=== PATIENT | female | born 1980 | race Hispanic/Latino ===

== ENCOUNTER 2019-08-25 17:45 | Emergency (ER) | payer BC ==
[~2019-08-25] VITALS: Ht 149.9 cm; Wt 77.1 kg
--- OUTSIDE RECORDS SUMMARY | 2019-08-25 17:47 | XMS REPORT | Summary of Care ---
Author Author Cristiane Fraser M.A. Organization Unknown Address [facility] Phone Unavailable Care Team Providers Care Pricing Intern Name Role Phone ELVIS BEAUCHAMP Unavailable Unavailable Cristiane Fraser M.A. 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 Quantity: 90 Active Fluconazole 150 MG Oral Tablet TAKE 1 TABLET ONCE AND REPEAT IN 1 WEEK. * Quantity: 1 Refills: 1 NILDA Ro.Seng, ELVIS * Start : 09-Dec-2017 Active Allergies and Adverse Reactions Name Dates Details No Known Allergies (Allergy) Status: Active Procedures Procedure Dates Details MA Digital Mammo Screening Harley [id number] Date: 03-Dec-2017 History of hysterectomy Completed History of tubal ligation Completed History of hernia repair Completed History of wrist surgery Completed History of cholecystectomy Completed History of kidney donation procedure Completed Immunization Name Dates Details Immunizations not documented Family History Name Dates Details Family history of cerebrovascular accident (CVA) (V17.1, Z82.3) Status: Active Family history of asthma (V17.5, Z82.5) Status: Active Family history of malignant neoplasm of uterus (V16.49, Z80.49) Status: Active Name Dates Details Family history of diabetes mellitus (V18.0, Z83.3) Status: Active Social History Name Dates Details - Status: Name Dates Details Never smoker Vital Signs Date Test Result Details [id number] BP Systolic 124 mm[Hg] Status: Comments: Location: LUE; Position: Sitting BP Diastolic 86 mm[Hg] Status: Comments: Location: LUE; Position: Sitting Height 59 in Status: Weight 164 lb Status: Body Mass Index Calculated 33.12 kg/m2 Status: Body Surface Area Calculated 1.69 m2 Status: Temperature 97.8 f Status: Comments: Method: Temporal Heart Rate 89 /min Status: Respiration Rate 16 /min Status: Results Date Description Value Details [id number] [O] Urine Dipstick (In Office) LEUKOCYTES neg (Normal) NITRITE neg (Normal) UROBILINOGEN neg (Normal) PROTEIN 30 pH 5 URINE BLOOD trace SPECIFIC GRAVITY 1.015 KETONES small BILIRUBIN neg (Normal) GLUCOSE norml (Normal) COLOR URINE elias APPEARANCE clear (Normal) [id number] [[facility]] CBC (INCLUDES DIFF/PLT) WBC 9.3 {K/CMM} Range: 3.7-10.4 RBC 5.38 {M/CMM} Range: 4.20-5.40 Hgb 14.6 g/dl Range: 12.0-16.0 Hct 43.6 % Range: 36.0-48.0 MCV 81.1 fL Range: 80.0-98.0 MCH 27.1 pg Range: 27.0-31.0 MCHC 33.4 g/dl Range: 32.0-36.0 RDW 13.7 % Range: 11.5-14.5 Platelet 224 {K/CMM} Range: 133-450 Mean Platelet Volume 9.3 fL Range: 7.4-10.4 [id number] [[facility]] Differential Segmented Neutrophils 64.8 % Range: 45.0-75.0 Monocytes 4.8 % Range: 2.0-12.0 Lymphocytes 28.8 % Range: 20.0-40.0 Eosinophils 1.0 % Range: 0.0-4.0 Basophils 0.6 % Range: 0.0-1.0 Segs-Bands # 6.0 {K/CMM} Range: 1.5-8.1 Lymphocytes # 2.7 {K/CMM} Range: 1.0-5.5 Monocytes # 0.4 {K/CMM} Range: 0.0-0.8 Eosinophils # 0.1 {K/CMM} Range: 0.0-0.5 Basophils # 0.1 {K/CMM} Range: 0.0-0.2 [id number] [[facility]] CMP W/EGFR Sodium Level 141 {mEq/l} Range: 135-145 Potassium Level 4.2 {mEq/l} Range: 3.5-5.1 Chloride Level 109 {mEq/l} Range: 95-109 Carbon Dioxide 27 {mEq/l} Range: 24-32 AGAP 9.2 {mEq/l} (Below low threshold) Range: 10.0-20.0 Glucose Lvl 86 mg/dl Range: 70-99 Comments: Adult reference range values reflect the clinical guidelinesof the [place] [employer]. Creatinine Lvl 1.00 mg/dl Range: 0.50-1.40 Blood Urea Nitrogen 15 mg/dl Range: 7-22 BUN/Creatinine Ratio 15 Range: 6-25 Total Protein 8.1 g/dl Range: 6.4-8.4 Albumin Lvl 3.8 g/dl Range: 3.5-5.0 Globulin 4.3 g/dl (Above high threshold) Range: 2.7-4.2 A/G Ratio 0.9 Range: 0.7-1.6 Calcium Level Total 8.9 mg/dl Range: 8.5-10.5 ALT 21 u/l Range: 0-65 AST 13 u/l Range: 0-37 Alk Phos 94 u/l Range: 39-136 Bili Total 0.4 mg/dl Range: 0.2-1.3 eGFR 71 {ML/MIN/1.7} Comments: The eGFR is calculated using the CKD-EPI formula. In most young, healthyindividuals the eGFR will be >90 mL/min/1.73m2. The eGFR declines with age. AneGFR of 60-89 may be normal in some populations, particularly the elderly, forwhom the CKD-EPI formula has not been extensively validated. Use of the eGFR isnot recommended in the following populations:Individuals with unstable creatinine concentrations, including patients and those with serious co-morbid conditions.Patients with extremes in muscle mass or diet.The data above are obtained from the National Kidney Disease Education Program(NKDEP) which additionally recommends that when the eGFR is used in patientswith extremes of body mass index for purposes of drug dosing, the eGFR shouldbe multiplied by the estimated BMI. [id number] [[facility]] TSH, 3RD GENERATION W/REFLEX TO FT4 TSH 1.500 {uIU/ml} Range: 0.360-3.740 [id number] [QH] LIPID PANEL WITH REFLEX TO DIRECT LDL Chol 184 mg/dl Range: <=199 Trig 88 mg/dl Range: <=149 HDL Cholesterol 63 mg/dl Range: >=61 LDL 103 mg/dl (Above high threshold) Range: <=99 CHD Risk 2.92 (Below low threshold) Range: 3.90-5.80 VLDL 18 [id number] Tobacco Use Screening Completed DONE [id number] [Q] SUREPATH PAP RFX HR HPV Comments: Fungal organisms morphologically consistent withCandida spp. CLINICAL INFORMATION: (Normal) Comments: Information not provided LMP: (Normal) Comments: NONE GIVEN PREV. PAP: (Normal) Comments: NORMAL PREV. BX: (Normal) Comments: NONE GIVEN SOURCE: (Normal) Comments: Vagina STATEMENT OF ADEQUACY: (Normal) Comments: Satisfactory for evaluation.Endocervical/transformation zone component absent.Age and/or menstrual status not provided INTERPRETATION/RESULT: (Normal) Comments: Negative for intraepithelial lesion or malignancy. INFECTION: (Normal) Comments: Fungal organisms morphologically consistent withCandida spp. TANGIBLE PERSONAL PROPERTY APPRAISER: (Normal) Comments: PMT, CT(ASCP)CT screening location: [place] [address] [address], [facility] [id number] Plan of Care Name Dates Details Planned Observations Planned Goals not documented Interventions Provided Medication Changes* Fluconazole 150 MG Oral Tablet - Start Instructions Name Dates Details Instructions not documented Encounters Appointment; ELVIS MUNGUIA P.A. Encounter Diagnosis: Problem not documented On: 03-Dec-2017 9:30
--- OUTSIDE RECORDS SUMMARY | 2019-08-25 17:48 | XMS REPORT ---
Author Author [facility] Address Unknown Phone Unavailable Care Team Providers Care Farm Contractor Name Role Phone ROBIN LORENZO Unavailable Unavailable LINK, RENE JAVED Unavailable Unavailable Problems This patient has no known problems. Allergies, Adverse Reactions, Alerts This patient has no known allergies or adverse reactions. Medications This patient has no known medications. Results Test Description Test Time Test Comments Text Results Atomic Results Result Comments URINE CULTURE 2019-07-24 08:41:00 CULTURE (BEAKER) (test sjqh=0847) >100,000 col/mL skin stephen URINALYSIS W/ [id number] 14:31:00* Test Item Value Reference Range Comments COLOR (BEAKER) (test cmnt=464) Yellow CLARITY (BEAKER) (test bjsn=577) Hazy SPECIFIC GRAVITY UA (BEAKER) (test fdie=745) 1.015 1.001-1.035 PH UA (BEAKER) (test ifhu=825) 5.5 5.0-8.0 PROTEIN UA (BEAKER) (test nbjm=577) 10 mg/dL Negative GLUCOSE UA (BEAKER) (test gjkk=553) Negative Negative KETONES UA (BEAKER) (test vmua=000) Negative Negative BILIRUBIN UA (BEAKER) (test jkhx=750) Negative Negative BLOOD UA (BEAKER) (test wlhz=878) Trace Negative NITRITE UA (BEAKER) (test ghlo=911) Negative Negative LEUKOCYTE ESTERASE UA (BEAKER) (test jvsx=364) Negative Negative UROBILINOGEN UA (BEAKER) (test tsbk=367) 0.2 mg/dL 0.2-1.0 RBC UA (BEAKER) (test bydb=264) 5 /HPF WBC UA (BEAKER) (test kfab=420) 2 /HPF SQUAMOUS EPITHELIAL (BEAKER) (test lnfi=365) 10 /HPF SOURCE(BEAKER) (test bqof=1723) CREATININE, RANDOM [id number] 14:11:00* Test Item Value Reference Range Comments CREATININE URINE (BEAKER) (test nwro=951) 116.4 mg/dL Reference Range: No NormalsPROTEIN, RANDOM [id number] 14:11:00* Test Item Value Reference Range Comments PROTEIN, URINE (BEAKER) (test mvyo=2732) 13 mg/dL 0-14 MICROALBUMIN, RANDOM [id number] 14:11:00* Test Item Value Reference Range Comments MICROALBUMIN URINE (BEAKER) (test ayma=7570) 1.9 mg/dL Reference Range: No NormalsCREATININE, RANDOM [id number] 14:10:00* Test Item Value Reference Range Comments CREATININE URINE (BEAKER) (test pkue=404) 116.5 mg/dL Reference Range: No NormalsMICROALBUMIN, RANDOM [id number] 14:10:00* Test Item Value Reference Range Comments MICROALBUMIN URINE (BEAKER) (test pfhd=2269) 1.8 mg/dL Reference Range: No NormalsBASIC METABOLIC [id number] 11:28:00* Test Item Value Reference Range Comments SODIUM (BEAKER) (test ifni=852) 135 meq/L 136-145 POTASSIUM (BEAKER) (test hbxs=734) 4.1 meq/L 3.5-5.1 CHLORIDE (BEAKER) (test ubfj=353) 105 meq/L 98-107 CO2 (BEAKER) (test nkja=957) 23 meq/L 22-29 BLOOD UREA NITROGEN (BEAKER) (test ffkw=287) 14 mg/dL 7-21 CREATININE (BEAKER) (test yncb=675) 0.93 mg/dL 0.57-1.25 GLUCOSE RANDOM (BEAKER) (test abcs=487) 89 mg/dL 70-105 CALCIUM (BEAKER) (test kmpq=072) 9.4 mg/dL 8.4-10.2 EGFR (BEAKER) (test fnwa=6462) INSUFFICIENT CLINICAL DATA TO CALCULATE ESTIMATED GFR. CBC W/PLT COUNT & AUTO [id number] 10:56:00* Test Item Value Reference Range Comments WHITE BLOOD CELL COUNT (BEAKER) (test abfm=674) 10.3 K/ L 3.5-10.5 RED BLOOD CELL COUNT (BEAKER) (test saac=158) 5.64 M/ L 3.93-5.22 HEMOGLOBIN (BEAKER) (test lael=127) 14.7 GM/DL 11.2-15.7 HEMATOCRIT (BEAKER) (test uueh=840) 45.6 % 34.1-44.9 MEAN CORPUSCULAR VOLUME (BEAKER) (test akno=103) 80.9 fL 79.4-94.8 MEAN CORPUSCULAR HEMOGLOBIN (BEAKER) (test kyhw=031) 26.1 pg 25.6-32.2 MEAN CORPUSCULAR HEMOGLOBIN CONC (BEAKER) (test xasu=149) 32.2 GM/DL 32.2-35.5 RED CELL DISTRIBUTION WIDTH (BEAKER) (test ybcr=001) 13.7 % 11.7-14.4 PLATELET COUNT (BEAKER) (test vyxp=849) 254 K/CU MM 150-450 MEAN PLATELET VOLUME (BEAKER) (test pxqp=001) 10.7 fL 9.4-12.3 NUCLEATED RED BLOOD CELLS (BEAKER) (test bhir=073) 0 /100 WBC 0-0 NEUTROPHILS RELATIVE PERCENT (BEAKER) (test ulbp=316) 67 % LYMPHOCYTES RELATIVE PERCENT (BEAKER) (test eudk=922) 25 % MONOCYTES RELATIVE PERCENT (BEAKER) (test dvhy=709) 5 % EOSINOPHILS RELATIVE PERCENT (BEAKER) (test kwtn=471) 1 % BASOPHILS RELATIVE PERCENT (BEAKER) (test xphk=837) 1 % NEUTROPHILS ABSOLUTE COUNT (BEAKER) (test chqf=620) 6.95 K/ L 1.56-6.13 LYMPHOCYTES ABSOLUTE COUNT (BEAKER) (test bulg=635) 2.62 K/ L 1.18-3.74 MONOCYTES ABSOLUTE COUNT (BEAKER) (test qysd=293) 0.51 K/ L 0.24-0.36 EOSINOPHILS ABSOLUTE COUNT (BEAKER) (test dscb=335) 0.11 K/ L 0.04-0.36 BASOPHILS ABSOLUTE COUNT (BEAKER) (test hbac=909) 0.05 K/ L 0.01-0.08 IMMATURE GRANULOCYTES-RELATIVE PERCENT (BEAKER) (test naoc=4931) 1 % 0-1 BREAST ULTRASOUND [id number] 08:29:28- BREAST ULTRASOUND LEFTULTRASOUND OF LEFT BREAST: 05/20/2019CLINICAL: 6 month follow up. Comparison is made to exams dated 05/20/2019 mammogram, 11/19/2018 ultrasound, 11/19/2018 mammogram - [facility]-, and 06/02/2018 mammogram - [facility]. Color flow and real-time ultrasound of the left breast were performed. Crockett scale images of the real-time examination were reviewed. The breast tissue has heterogenous background echotexture. Stable probable complicated cyst versus solid oval mass at 11 o'clock, 6 cm from the nipple, unchanged in size and morphology since comparison ultrasound from 11/2018. The rest of the survey ultrasound is negative. No axillary lymphadenopathy was seen.IMPRESSION: PROBABLY BENIGN - FOLLOW-UP RECOMMENDEDProbable complicated cyst in the left breast at 11 o'clock. A follow-up ultrasound in 12 months at the time of patient's mammogram to establish stability.Maykel Edge M.D. ss/:05/20/2019 08:29:28 Bonding And Composite Fabricator: Dianna DENTON, [facility]-letter sent: Short Term Follow Up Ultrasound BI-RADS: 3 Probably benignDIAG MAMM BILATERAL CAD DIGITAL 2019-05-20 08:27:35 - DIAG MAMM BILATERAL CAD DIGITALBILATERAL DIGITAL DIAGNOSTIC MAMMOGRAM WITH CAD: 05/20/2019CLINICAL: 6 Month follow-up. Current mammographic images were evaluated by either a Virtualtwo M-Vu or a [employer] ImageChecker CAD (computer aided detection system). Comparison is made to exam dated 06/02/2018 mammogram - [facility]. The tissue of both breasts is heterogeneously dense. This may lower the sensitivity of mammography. Stable loosely grouped punctate and round calcifications, in the left lower inner breast, approximately 6 cm from the nipple, since 05/2018 mammogram. No suspicious mass, architectural distortion, or lymph node abnormality detected. IMPRESSION: INCOMPLETE ASSESSMENT: ADDITIONAL IMAGING EVALUATION RECOMMENDEDStable punctate and round calcifications in the left lower inner breast, middle depth, since 2018. A follow-up mammogram in 12 months is recommended to establish two-year stability. Please refer to left breast ult rasound for further details as well.Maykel Edge M.D. ss/:05/20/20 19 08:27:35 Entry: - 05/21/2019 09:46:41Imaging Technologist: Adrianna sylvester FW, [facility]-Mammogram BI-RADS: 0 IndeterminateBREAST ULTRASOUND [id number] 12:57:24- BREAST ULTRASOUND BILATERALULTRASOUND OF BOTH BREASTS AND BOTH AXILLA: 11/19/2018CLINICAL: Abnormal mammogram. Comparison is made to exam dated 06/02/2018 mammogram - [facility]. Real-time ultrasound of both breasts and both axilla was performed. There is a probable complicated cyst measuring 4 x 3 mm in the left breast at 11 o'clock, 6 cm from the nipple. No abnormalities were seen sonographically in the right breast. Specifically, no sonographic correlate is identified for the 4 mm group of punctate calcifications in the left breast at 7:00, 6 cm from the nipple.IMPRESSION: PROBABLY BENIGN - FOLLOW-UP RECOMMENDEDThe probable complicated cyst in the left breast at 11:00, 6 cm from the nipple, is probably benign. A follow-up ultrasound in 6 months is recommended. Of note, this ultrasound can be performed at the same time when the patient returns for magnification views of the left breast calcifications noted at 7:00, 6 cm from the nippleRenetta Pat M.D. ar/:11/19/2018 12:57:24 Bonding And Composite Fabricator: Kristine Luu RDDELAWARE PSY[facility], [facility]-FWletter sent: Short Term Follo w Up Ultrasound BI-RADS: 3 Probably benignURINE [id number] 15:51:00* Test Item Value Reference Range Comments CULTURE (BEAKER) (test sauo=5536) ESCHERICHIA COLI 40-49,000 col/mL Escherichia coli Amikacin (test code=1) Ampicillin + Sulbactam (test code=6) Aztreonam (test code=32) Cefepime (test code=51) Cefoxitin (test code=68) Ceftazidime (test code=27) Ceftriaxone (test code=52) Ertapenem (test code=38) Gentamicin (test code=18) Levofloxacin (test code=22) Meropenem (test code=34) Nitrofurantoin (test code=23) Piperacillin + Tazobactam (test code=29) Tetracycline (test code=2) Tobramycin (test code=25) Trimethoprim + Sulfamethoxazole (test code=47) CULTURE (BEAKER) (test aolt=7675) VANCOMYCIN RESISTANT ENTEROCOCCUS SPECIES 30-39,000 col/mL Vancomycin resistant Enterococcus species Ampicillin (test code=26) Linezolid (test code=40) Nitrofurantoin (test code=23) Tetracycline (test code=2) Vancomycin (test code=13) Daptomycin (test code=59) Susceptible 0-4 , No Interpretations Established <0 or >4 BASIC METABOLIC [id number] 13:40:00* Test Item Value Reference Range Comments SODIUM (BEAKER) (test qytl=327) 136 meq/L 136-145 POTASSIUM (BEAKER) (test ciji=295) 4.4 meq/L 3.5-5.1 CHLORIDE (BEAKER) (test uzwh=563) 104 meq/L 98-107 CO2 (BEAKER) (test bayw=247) 25 meq/L 22-29 BLOOD UREA NITROGEN (BEAKER) (test xnpa=088) 15 mg/dL 7-21 CREATININE (BEAKER) (test glkp=839) 1.12 mg/dL 0.57-1.25 GLUCOSE RANDOM (BEAKER) (test kflz=687) 95 mg/dL 70-105 CALCIUM (BEAKER) (test pzzk=208) 9.4 mg/dL 8.4-10.2 EGFR (BEAKER) (test nlts=8421) mL/min/1.73 sq m INSUFFICIENT CLINICAL DATA TO CALCULATE ESTIMATED GFR. CREATININE, RANDOM [id number] 13:39:00* Test Item Value Reference Range Comments CREATININE URINE (BEAKER) (test ybax=569) 175.0 mg/dL Reference Range: No NormalsPROTEIN, RANDOM [id number] 13:39:00* Test Item Value Reference Range Comments PROTEIN, URINE (BEAKER) (test bzbw=5451) 13 mg/dL 0-14 MICROALBUMIN, RANDOM [id number] 13:39:00* Test Item Value Reference Range Comments MICROALBUMIN URINE (BEAKER) (test gdxl=7062) 1.7 mg/dL Reference Range: No NormalsURINALYSIS W/ [id number] 13:33:00* Test Item Value Reference Range Comments COLOR (BEAKER) (test iyws=308) Yellow CLARITY (BEAKER) (test psmr=429) Hazy SPECIFIC GRAVITY UA (BEAKER) (test vufc=273) 1.023 1.001-1.035 PH UA (BEAKER) (test rwba=083) 6.5 5.0-8.0 PROTEIN UA (BEAKER) (test mokv=519) 20 mg/dL Negative GLUCOSE UA (BEAKER) (test nhxm=182) Negative Negative KETONES UA (BEAKER) (test xdkw=540) Negative Negative BILIRUBIN UA (BEAKER) (test yjoy=502) Negative Negative BLOOD UA (BEAKER) (test tgpp=514) Negative Negative NITRITE UA (BEAKER) (test igfb=819) Negative Negative LEUKOCYTE ESTERASE UA (BEAKER) (test tawd=902) Negative Negative UROBILINOGEN UA (BEAKER) (test agpn=333) 0.2 mg/dL 0.2-1.0 RBC UA (BEAKER) (test hoti=954) < /HPF WBC UA (BEAKER) (test zinj=603) 1 /HPF SQUAMOUS EPITHELIAL (BEAKER) (test vhbl=036) 10 /HPF SOURCE(BEAKER) (test jzht=9075) CBC W/PLT COUNT & AUTO [id number] 13:27:00* Test Item Value Reference Range Comments WHITE BLOOD CELL COUNT (BEAKER) (test axni=611) 8.6 K/ L 3.5-10.5 RED BLOOD CELL COUNT (BEAKER) (test rkjf=736) 5.14 M/ L 3.93-5.22 HEMOGLOBIN (BEAKER) (test speb=252) 13.7 GM/DL 11.2-15.7 HEMATOCRIT (BEAKER) (test yptg=294) 42.1 % 34.1-44.9 MEAN CORPUSCULAR VOLUME (BEAKER) (test yurz=006) 81.9 fL 79.4-94.8 MEAN CORPUSCULAR HEMOGLOBIN (BEAKER) (test zwto=826) 26.7 pg 25.6-32.2 MEAN CORPUSCULAR HEMOGLOBIN CONC (BEAKER) (test eyop=289) 32.5 GM/DL 32.2-35.5 RED CELL DISTRIBUTION WIDTH (BEAKER) (test hvjx=850) 13.7 % 11.7-14.4 PLATELET COUNT (BEAKER) (test zmgz=451) 251 K/CU MM 150-450 MEAN PLATELET VOLUME (BEAKER) (test rkcr=644) 10.5 fL 9.4-12.3 NUCLEATED RED BLOOD CELLS (BEAKER) (test kscw=249) 0 /100 WBC 0-0 NEUTROPHILS RELATIVE PERCENT (BEAKER) (test vmlv=415) 58 % LYMPHOCYTES RELATIVE PERCENT (BEAKER) (test aaom=332) 33 % MONOCYTES RELATIVE PERCENT (BEAKER) (test smnq=249) 6 % EOSINOPHILS RELATIVE PERCENT (BEAKER) (test ktbh=440) 2 % BASOPHILS RELATIVE PERCENT (BEAKER) (test ssfu=287) 1 % NEUTROPHILS ABSOLUTE COUNT (BEAKER) (test dtkr=674) 5.00 K/ L 1.56-6.13 LYMPHOCYTES ABSOLUTE COUNT (BEAKER) (test lzcs=176) 2.89 K/ L 1.18-3.74 MONOCYTES ABSOLUTE COUNT (BEAKER) (test oavt=156) 0.54 K/ L 0.24-0.36 EOSINOPHILS ABSOLUTE COUNT (BEAKER) (test ztvu=388) 0.13 K/ L 0.04-0.36 BASOPHILS ABSOLUTE COUNT (BEAKER) (test hfzj=133) 0.04 K/ L 0.01-0.08 IMMATURE GRANULOCYTES-RELATIVE PERCENT (BEAKER) (test vcpn=4675) 1 % 0-1 URINE [id number] 13:30:00* Test Item Value Reference Range Comments CULTURE (BEAKER) (test fash=6156) 30-39,000 col/mL skin stephen CREATININE, RANDOM [id number] 12:00:00* Test Item Value Reference Range Comments CREATININE URINE (BEAKER) (test knrw=054) 107.1 mg/dL Reference Range: No NormalsPROTEIN, RANDOM [id number] 12:00:00* Test Item Value Reference Range Comments PROTEIN, URINE (BEAKER) (test mlvs=4407) 13 mg/dL 0-14 URINALYSIS W/ [id number] 11:51:00* Test Item Value Reference Range Comments COLOR (BEAKER) (test gkdj=061) Yellow CLARITY (BEAKER) (test szcm=132) Clear SPECIFIC GRAVITY UA (BEAKER) (test bwsm=425) 1.016 1.001-1.035 PH UA (BEAKER) (test kddv=597) 5.5 5.0-8.0 PROTEIN UA (BEAKER) (test ruqz=027) Negative Negative GLUCOSE UA (BEAKER) (test gvtb=347) Negative Negative KETONES UA (BEAKER) (test hpiw=114) Negative Negative BILIRUBIN UA (BEAKER) (test glyk=459) Negative Negative BLOOD UA (BEAKER) (test cusp=017) Negative Negative NITRITE UA (BEAKER) (test olth=732) Negative Negative LEUKOCYTE ESTERASE UA (BEAKER) (test nsbs=230) Negative Negative UROBILINOGEN UA (BEAKER) (test quux=115) 0.2 mg/dL 0.2-1.0 RBC UA (BEAKER) (test ulpk=878) 1 /HPF WBC UA (BEAKER) (test vmgj=918) 1 /HPF BACTERIA (BEAKER) (test zyzi=854) Rare MUCUS (BEAKER) (test rlfd=1812) Rare SQUAMOUS EPITHELIAL (BEAKER) (test keet=326) 6 /HPF SOURCE(BEAKER) (test zslk=5453) BASIC METABOLIC [id number] 11:38:00* Test Item Value Reference Range Comments SODIUM (BEAKER) (test jjck=096) 139 meq/L 136-145 POTASSIUM (BEAKER) (test vbkn=851) 4.3 meq/L 3.5-5.1 CHLORIDE (BEAKER) (test dphp=635) 106 meq/L 98-107 CO2 (BEAKER) (test iblf=580) 24 meq/L 22-29 BLOOD UREA NITROGEN (BEAKER) (test pjgt=727) 14 mg/dL 7-21 CREATININE (BEAKER) (test bbkb=663) 0.82 mg/dL 0.57-1.25 GLUCOSE RANDOM (BEAKER) (test igpz=632) 88 mg/dL 70-105 CALCIUM (BEAKER) (test oyzg=178) 9.4 mg/dL 8.4-10.2 EGFR (BEAKER) (test tgcf=5584) mL/min/1.73 sq m INSUFFICIENT CLINICAL DATA TO CALCULATE ESTIMATED GFR. CBC W/PLT COUNT & AUTO [id number] 11:24:00* Test Item Value Reference Range Comments WHITE BLOOD CELL COUNT (BEAKER) (test lguy=396) 8.2 K/ L 3.5-10.5 RED BLOOD CELL COUNT (BEAKER) (test lpbu=506) 5.34 M/ L 3.93-5.22 HEMOGLOBIN (BEAKER) (test jncs=179) 14.3 GM/DL 11.2-15.7 HEMATOCRIT (BEAKER) (test qogu=785) 43.6 % 34.1-44.9 MEAN CORPUSCULAR VOLUME (BEAKER) (test cmbb=036) 81.6 fL 79.4-94.8 MEAN CORPUSCULAR HEMOGLOBIN (BEAKER) (test hvka=735) 26.8 pg 25.6-32.2 MEAN CORPUSCULAR HEMOGLOBIN CONC (BEAKER) (test blzq=792) 32.8 GM/DL 32.2-35.5 RED CELL DISTRIBUTION WIDTH (BEAKER) (test unms=704) 13.8 % 11.7-14.4 PLATELET COUNT (BEAKER) (test nmxi=627) 242 K/CU MM 150-450 MEAN PLATELET VOLUME (BEAKER) (test apes=198) 10.8 fL 9.4-12.3 NUCLEATED RED BLOOD CELLS (BEAKER) (test knit=917) 0 /100 WBC 0-0 NEUTROPHILS RELATIVE PERCENT (BEAKER) (test ckjt=245) 65 % LYMPHOCYTES RELATIVE PERCENT (BEAKER) (test jnwn=466) 28 % MONOCYTES RELATIVE PERCENT (BEAKER) (test iamq=656) 5 % EOSINOPHILS RELATIVE PERCENT (BEAKER) (test txsf=076) 1 % BASOPHILS RELATIVE PERCENT (BEAKER) (test flwp=710) 1 % NEUTROPHILS ABSOLUTE COUNT (BEAKER) (test kktb=923) 5.37 K/ L 1.56-6.13 LYMPHOCYTES ABSOLUTE COUNT (BEAKER) (test flhx=266) 2.32 K/ L 1.18-3.74 MONOCYTES ABSOLUTE COUNT (BEAKER) (test cryk=054) 0.37 K/ L 0.24-0.36 EOSINOPHILS ABSOLUTE COUNT (BEAKER) (test oolg=135) 0.08 K/ L 0.04-0.36 BASOPHILS ABSOLUTE COUNT (BEAKER) (test krqh=068) 0.05 K/ L 0.01-0.08 IMMATURE GRANULOCYTES-RELATIVE PERCENT (BEAKER) (test vkfj=8641) 0 % 0-1 URINE [id number] 11:49:00* Test Item Value Reference Range Comments CULTURE (BEAKER) (test tcrt=5025) >100,000 col/mL skin stephen CREATININE, RANDOM [id number] 15:28:00* Test Item Value Reference Range Comments CREATININE URINE (BEAKER) (test ssqm=310) 237.3 mg/dL Reference Range: No NormalsPROTEIN, RANDOM [id number] 15:26:00* Test Item Value Reference Range Comments PROTEIN, URINE (BEAKER) (test jfop=2196) 26 mg/dL 0-14 BASIC METABOLIC [id number] 15:17:00* Test Item Value Reference Range Comments SODIUM (BEAKER) (test zgaw=182) 138 meq/L 136-145 POTASSIUM (BEAKER) (test kieg=054) 3.9 meq/L 3.5-5.1 CHLORIDE (BEAKER) (test ylre=810) 106 meq/L 98-107 CO2 (BEAKER) (test xwnt=612) 24 meq/L 22-29 BLOOD UREA NITROGEN (BEAKER) (test asku=310) 13 mg/dL 7-21 CREATININE (BEAKER) (test esar=097) 1.01 mg/dL 0.57-1.25 GLUCOSE RANDOM (BEAKER) (test dhev=822) 113 mg/dL 70-105 CALCIUM (BEAKER) (test xese=441) 9.3 mg/dL 8.4-10.2 EGFR (BEAKER) (test ygfq=2585) mL/min/1.73 sq m INSUFFICIENT CLINICAL DATA TO CALCULATE ESTIMATED GFR. URINALYSIS W/ [id number] 15:14:00* Test Item Value Reference Range Comments COLOR (BEAKER) (test fejz=419) Yellow CLARITY (BEAKER) (test luaz=206) Hazy SPECIFIC GRAVITY UA (BEAKER) (test ntvu=656) 1.022 1.001-1.035 PH UA (BEAKER) (test jphn=959) 6.0 5.0-8.0 PROTEIN UA (BEAKER) (test owvf=730) 20 mg/dL Negative GLUCOSE UA (BEAKER) (test vjtg=330) Negative Negative KETONES UA (BEAKER) (test kwpq=402) Negative Negative BILIRUBIN UA (BEAKER) (test zzjt=641) Negative Negative BLOOD UA (BEAKER) (test pzxd=449) Negative Negative NITRITE UA (BEAKER) (test kojw=081) Negative Negative LEUKOCYTE ESTERASE UA (BEAKER) (test tcfd=257) Negative Negative UROBILINOGEN UA (BEAKER) (test buzs=061) 0.2 mg/dL 0.2-1.0 RBC UA (BEAKER) (test dsus=751) 1 /HPF WBC UA (BEAKER) (test wivu=913) 1 /HPF BACTERIA (BEAKER) (test cwwr=018) Occasional MUCUS (BEAKER) (test fmot=8687) Many SQUAMOUS EPITHELIAL (BEAKER) (test ptxi=570) 11 /HPF SOURCE(BEAKER) (test jaaw=7014) CBC W/PLT COUNT & AUTO [id number] 14:54:00* Test Item Value Reference Range Comments WHITE BLOOD CELL COUNT (BEAKER) (test juqs=662) 10.0 K/ L 3.5-10.5 RED BLOOD CELL COUNT (BEAKER) (test zgvb=898) 5.52 M/ L 3.93-5.22 HEMOGLOBIN (BEAKER) (test ynzc=544) 14.1 GM/DL 11.2-15.7 HEMATOCRIT (BEAKER) (test nify=580) 44.5 % 34.1-44.9 MEAN CORPUSCULAR VOLUME (BEAKER) (test rvqn=172) 80.6 fL 79.4-94.8 MEAN CORPUSCULAR HEMOGLOBIN (BEAKER) (test cxoj=332) 25.5 pg 25.6-32.2 MEAN CORPUSCULAR HEMOGLOBIN CONC (BEAKER) (test ehqk=146) 31.7 GM/DL 32.2-35.5 RED CELL DISTRIBUTION WIDTH (BEAKER) (test rvnn=973) 13.6 % 11.7-14.4 PLATELET COUNT (BEAKER) (test vmfk=728) 299 K/CU MM 150-450 MEAN PLATELET VOLUME (BEAKER) (test svcv=152) 10.6 fL 9.4-12.3 NUCLEATED RED BLOOD CELLS (BEAKER) (test nqbh=548) 0 /100 WBC 0-0 NEUTROPHILS RELATIVE PERCENT (BEAKER) (test dfrx=824) 70 % LYMPHOCYTES RELATIVE PERCENT (BEAKER) (test tyic=386) 24 % MONOCYTES RELATIVE PERCENT (BEAKER) (test kulq=395) 4 % EOSINOPHILS RELATIVE PERCENT (BEAKER) (test glwb=409) 1 % BASOPHILS RELATIVE PERCENT (BEAKER) (test ugip=476) 1 % NEUTROPHILS ABSOLUTE COUNT (BEAKER) (test ojxo=131) 7.04 K/ L 1.56-6.13 LYMPHOCYTES ABSOLUTE COUNT (BEAKER) (test jjol=369) 2.35 K/ L 1.18-3.74 MONOCYTES ABSOLUTE COUNT (BEAKER) (test ezdc=554) 0.40 K/ L 0.24-0.36 EOSINOPHILS ABSOLUTE COUNT (BEAKER) (test jeys=077) 0.09 K/ L 0.04-0.36 BASOPHILS ABSOLUTE COUNT (BEAKER) (test daqn=922) 0.08 K/ L 0.01-0.08 IMMATURE GRANULOCYTES-RELATIVE PERCENT (BEAKER) (test kbrr=7663) 0 % 0-1 BASIC METABOLIC [id number] 05:46:00* Test Item Value Reference Range Comments SODIUM (BEAKER) (test homh=054) 140 meq/L 136-145 POTASSIUM (BEAKER) (test jypw=951) 4.1 meq/L 3.5-5.1 CHLORIDE (BEAKER) (test cydg=839) 111 meq/L 98-107 CO2 (BEAKER) (test vjbj=339) 25 meq/L 22-29 BLOOD UREA NITROGEN (BEAKER) (test rgdm=592) 7 mg/dL 7-21 CREATININE (BEAKER) (test vezp=649) 0.90 mg/dL 0.57-1.25 GLUCOSE RANDOM (BEAKER) (test lscc=255) 102 mg/dL 70-105 CALCIUM (BEAKER) (test dbwn=457) 8.2 mg/dL 8.4-10.2 EGFR (BEAKER) (test sjae=7536) mL/min/1.73 sq m INSUFFICIENT CLINICAL DATA TO CALCULATE ESTIMATED GFR. HEMOGLOBIN AND [id number] 05:24:00* Test Item Value Reference Range Comments HEMOGLOBIN (BEAKER) (test frpy=625) 12.0 GM/DL 11.2-15.7 HEMATOCRIT (BEAKER) (test ihhs=749) 37.2 % 34.1-44.9 HEMOGLOBIN AND [id number] 16:27:00* Test Item Value Reference Range Comments HEMOGLOBIN (BEAKER) (test hsjk=955) 12.0 GM/DL 11.2-15.7 HEMATOCRIT (BEAKER) (test qigh=397) 38.1 % 34.1-44.9 BASIC METABOLIC [id number] 06:07:00* Test Item Value Reference Range Comments SODIUM (BEAKER) (test wgcu=643) 137 meq/L 136-145 POTASSIUM (BEAKER) (test okxa=246) 3.9 meq/L 3.5-5.1 CHLORIDE (BEAKER) (test wwrq=531) 108 meq/L 98-107 CO2 (BEAKER) (test ujto=502) 23 meq/L 22-29 BLOOD UREA NITROGEN (BEAKER) (test xsbd=772) 8 mg/dL 7-21 CREATININE (BEAKER) (test xuur=055) 0.97 mg/dL 0.57-1.25 GLUCOSE RANDOM (BEAKER) (test uvbr=210) 106 mg/dL 70-105 CALCIUM (BEAKER) (test ttie=098) 7.7 mg/dL 8.4-10.2 EGFR (BEAKER) (test czay=5147) mL/min/1.73 sq m INSUFFICIENT CLINICAL DATA TO CALCULATE ESTIMATED GFR. Before arterial line is discontinuedHEMOGLOBIN AND [id number] 05:36:00 * Test Item Value Reference Range Comments HEMOGLOBIN (BEAKER) (test mtph=951) 12.2 GM/DL 11.2-15.7 HEMATOCRIT (BEAKER) (test wwhs=727) 38.7 % 34.1-44.9 BASIC METABOLIC [id number] 13:15:00* Test Item Value Reference Range Comments SODIUM (BEAKER) (test fmpd=752) 139 meq/L 136-145 POTASSIUM (BEAKER) (test bysh=362) 4.3 meq/L 3.5-5.1 Specimen slightly hemolyzed CHLORIDE (BEAKER) (test qbey=994) 107 meq/L 98-107 CO2 (BEAKER) (test xjvb=900) 22 meq/L 22-29 BLOOD UREA NITROGEN (BEAKER) (test jeiq=379) 11 mg/dL 7-21 CREATININE (BEAKER) (test stcq=235) 0.92 mg/dL 0.57-1.25 Specimen slightly hemolyzed GLUCOSE RANDOM (BEAKER) (test wgvf=476) 141 mg/dL 70-105 CALCIUM (BEAKER) (test zzxq=837) 8.0 mg/dL 8.4-10.2 EGFR (BEAKER) (test xrgl=9763) mL/min/1.73 sq m INSUFFICIENT CLINICAL DATA TO CALCULATE ESTIMATED GFR. [facility] [id number] 12:41:00* Test Item Value Reference Range Comments HEMOGLOBIN (BEAKER) (test wxek=467) 14.8 GM/DL 11.2-15.7 HEMATOCRIT (BEAKER) (test ftph=921) 45.6 % 34.1-44.9 HLA [id number] 11:47:00* Test Item Value Reference Range Comments HLA RESULT (BEAKER) (test ixwp=3229) See Scanned Report HLA-A AG1 (BEAKER) (test hwnl=1208) HLA-A AG2 (BEAKER) (test wzdb=9130) HLA-B AG1 (BEAKER) (test pawj=8047) HLA-B AG2 (BEAKER) (test meki=2485) HLA-C AG1 (BEAKER) (test xcgj=1603) HLA-C AG2 (BEAKER) (test pbqv=8940) HLA-DR AG1 (BEAKER) (test jowo=2105) HLA-DR AG2 (BEAKER) (test lkbv=0737) HLA-DQ AG1 (BEAKER) (test odki=0743) HLA-DQ AG2 (BEAKER) (test ihnl=1406) HLA-DRW (BEAKER) (test licp=0111) HEPATITIS C PCR, [id number] 14:36:00* Test Item Value Reference Range Comments HCV RESULT COMPONENT (BEAKER) (test gepe=5726) HCV RNA not detected HCV RNA not detected This test uses a Real-Time Polymerase Chain Reaction (RT-PCR) methodology and wa s performed using [employer] Ampliprep/F[employer] TaqMan HCV test kit version 2.0 ([employer]).Reportable range for this assay is 15 - 100,000,000 IU per mL (1.18 - 8.00 Log IU/mL).[id number] 13:00:00* Test Item Value Reference Range Comments RPR SCREEN (BEAKER) (test zphg=461) Nonreactive Nonreactive HEPATITIS B SURFACE [id number] 13:39:00* Test Item Value Reference Range Comments HEPATITIS B SURFACE ANTIBODY (BEAKER) (test dbgd=002) < mIU/mL <8.0 Pre-op labsPre-op labsPre-op labsPre-op labsHEPATITIS B CORE ANTIBODY, IGM 2017-07-01 13:36:00* Test Item Value Reference Range Comments HEPATITIS B CORE IGM ANTIBODY (BEAKER) (test lmrh=105) Nonreactive Nonreactive Pre-op labsPre-op labsPre-op labsPre-op labsHIV-1 ANTIGEN WITH HIV-1/2 ANTIBODY 2017-07-01 13:36:00* Test Item Value Reference Range Comments HIV-1 ANTIGEN WITH HIV 1\T\2 ANTIBODY (2) (BEAKER) (test ensx=8402) Nonreactive Nonreactive Pre-op labsPre-op labsPre-op labsPre-op labsURINALYSIS W/ [id number] 12:42:00* Test Item Value Reference Range Comments COLOR (BEAKER) (test edhd=559) Yellow CLARITY (BEAKER) (test xuhc=313) Hazy SPECIFIC GRAVITY UA (BEAKER) (test igtc=613) 1.019 1.001-1.035 PH UA (BEAKER) (test dslq=715) 6.5 5.0-8.0 PROTEIN UA (BEAKER) (test kqwa=496) 10 mg/dL Negative GLUCOSE UA (BEAKER) (test acbm=929) Negative Negative KETONES UA (BEAKER) (test gotn=795) Negative Negative BILIRUBIN UA (BEAKER) (test mnyr=540) Negative Negative BLOOD UA (BEAKER) (test ltca=331) Negative Negative NITRITE UA (BEAKER) (test kwbh=524) Negative Negative LEUKOCYTE ESTERASE UA (BEAKER) (test ghor=309) Negative Negative UROBILINOGEN UA (BEAKER) (test gwhn=198) 0.2 mg/dL 0.2-1.0 RBC UA (BEAKER) (test pkyg=657) < /HPF WBC UA (BEAKER) (test sjaq=272) < /HPF BACTERIA (BEAKER) (test ggxq=399) Rare MUCUS (BEAKER) (test nudz=6401) Rare SQUAMOUS EPITHELIAL (BEAKER) (test lnku=869) 15 /HPF SOURCE(BEAKER) (test cgik=1410) HEPATITIS B SURFACE [id number] 11:14:00* Test Item Value Reference Range Comments HEPATITIS B SURFACE ANTIGEN (2) (BEAKER) (test bwko=8623) Nonreactive Nonreactive Pre-op labsPre-op labsPre-op labsPre-op labsBASIC METABOLIC [id number] 10:49:00* Test Item Value Reference Range Comments SODIUM (BEAKER) (test ieen=200) 139 meq/L 136-145 POTASSIUM (BEAKER) (test hojh=674) 4.1 meq/L 3.5-5.1 CHLORIDE (BEAKER) (test afqx=203) 104 meq/L 98-107 CO2 (BEAKER) (test fdxb=963) 26 meq/L 22-29 BLOOD UREA NITROGEN (BEAKER) (test vodk=903) 10 mg/dL 7-21 CREATININE (BEAKER) (test wnjm=655) 0.72 mg/dL 0.57-1.25 GLUCOSE RANDOM (BEAKER) (test rbew=034) 93 mg/dL 70-105 CALCIUM (BEAKER) (test vvwl=579) 9.5 mg/dL 8.4-10.2 EGFR (BEAKER) (test megs=6855) mL/min/1.73 sq m INSUFFICIENT CLINICAL DATA TO CALCULATE ESTIMATED GFR. Pre-op labsPre-op [id number] 10:47:00* Test Item Value Reference Range Comments PHOSPHORUS (BEAKER) (test glwy=701) 3.5 mg/dL 2.3-4.7 Pre-op labsPre-op labsCBC W/PLT COUNT & AUTO [id number] 10:25:00* Test Item Value Reference Range Comments WHITE BLOOD CELL COUNT (BEAKER) (test pwew=800) 8.8 K/ L 3.5-10.5 RED BLOOD CELL COUNT (BEAKER) (test jxqp=216) 5.53 M/ L 3.93-5.22 HEMOGLOBIN (BEAKER) (test srrr=311) 14.4 GM/DL 11.2-15.7 HEMATOCRIT (BEAKER) (test zdvu=579) 43.8 % 34.1-44.9 MEAN CORPUSCULAR VOLUME (BEAKER) (test tvtj=838) 79.2 fL 79.4-94.8 MEAN CORPUSCULAR HEMOGLOBIN (BEAKER) (test anll=820) 26.0 pg 25.6-32.2 MEAN CORPUSCULAR HEMOGLOBIN CONC (BEAKER) (test cjuo=870) 32.9 GM/DL 32.2-35.5 RED CELL DISTRIBUTION WIDTH (BEAKER) (test dcbg=198) 14.1 % 11.7-14.4 PLATELET COUNT (BEAKER) (test yzrd=961) 221 K/CU MM 150-450 MEAN PLATELET VOLUME (BEAKER) (test pewt=362) 10.6 fL 9.4-12.3 NUCLEATED RED BLOOD CELLS (BEAKER) (test dsmu=485) 0 /100 WBC 0-0 NEUTROPHILS RELATIVE PERCENT (BEAKER) (test ffls=581) 67 % LYMPHOCYTES RELATIVE PERCENT (BEAKER) (test bzue=789) 27 % MONOCYTES RELATIVE PERCENT (BEAKER) (test vixt=212) 4 % EOSINOPHILS RELATIVE PERCENT (BEAKER) (test zgjn=799) 1 % BASOPHILS RELATIVE PERCENT (BEAKER) (test jezy=131) 1 % NEUTROPHILS ABSOLUTE COUNT (BEAKER) (test qrcf=414) 5.88 K/ L 1.56-6.13 LYMPHOCYTES ABSOLUTE COUNT (BEAKER) (test ewhk=448) 2.40 K/ L 1.18-3.74 MONOCYTES ABSOLUTE COUNT (BEAKER) (test ulwq=391) 0.38 K/ L 0.24-0.36 EOSINOPHILS ABSOLUTE COUNT (BEAKER) (test qzjc=985) 0.08 K/ L 0.04-0.36 BASOPHILS ABSOLUTE COUNT (BEAKER) (test azph=922) 0.05 K/ L 0.01-0.08 IMMATURE GRANULOCYTES-RELATIVE PERCENT (BEAKER) (test lysf=3213) 1 % 0-1 [id number] 10:19:00* Test Item Value Reference Range Comments PROTIME (BEAKER) (test aare=453) 13.3 seconds 11.7-14.7 INR (BEAKER) (test gwrm=829) 1.0 <=5.9 PARTIAL THROMBOPLASTIN TIME (BEAKER) (test smit=232) 33.3 seconds 22.5-36.0 RECOMMENDED COUMADIN/WARFARIN INR THERAPY RANGESSTANDARD DOSE: 2.0 - 3.0 Inclu [place]: PROPHYLAXIS for venous thrombosis, systemic embolization; TREATMENT for chrystal ous thrombosis and/or pulmonary embolus.HIGH RISK: Target INR is 2.5-3.5 for pat ients with mechanical heart valves.Pre-op labsPre-op labsHEPATITIS C PCR, [id number] 16:31:00* Test Item Value Reference Range Comments HCV RESULT COMPONENT (BEAKER) (test fijh=8493) HCV RNA not detected HCV RNA not detected This test uses a Real-Time Polymerase Chain Reaction (RT-PCR) methodology and wa s performed using [employer] Ampliprep/FAR[employer]NA TaqMan HCV test kit version 2.0 ([employer]).Reportable range for this assay is 15 - 100,000,000 IU per mL (1.18 - 8.00 Log IU/mL).URINE [id number] 10:45:00* Test Item Value Reference Range Comments CULTURE (BEAKER) (test moaj=2348) >100,000 col/mL skin stephen [id number] 11:13:00* Test Item Value Reference Range Comments RPR SCREEN (BEAKER) (test gmds=144) Nonreactive Nonreactive CYTOMEGALOVIRUS ANTIBODY, [id number] 04:05:00* Test Item Value Reference Range Comments CYTOMEGALOVIRUS IGG ANTIBODY (BEAKER) (test frjm=215) Positive CYTOMEGALOVIRUS ANTIBODY, [id number] 04:05:00* Test Item Value Reference Range Comments CYTOMEGALOVIRUS IGM ANTIBODY (BEAKER) (test nces=309) Negative EBV-VCA ANTIBODY, [id number] 04:05:00* Test Item Value Reference Range Comments JAM-ALONSO VCA IGG (BEAKER) (test vsyy=515) Positive EBV-VCA ANTIBODY, [id number] 04:05:00* Test Item Value Reference Range Comments JAM-ALONSO VCA IGM (BEAKER) (test xbew=615) Negative HEMOGLOBIN [id number] 14:48:00* Test Item Value Reference Range Comments HEMOGLOBIN A1C (BEAKER) (test dehb=872) 5.7 % 4.3-6.1 HCG, QUANTITATIVE, [id number] 11:16:00* Test Item Value Reference Range Comments GONADOTROPIN, CHORIONIC (HCG) QUANT (BEAKER) (test rdny=114) < mIU/mL 0-10 Non- Females: <10 mIU/mL Females: Gestation Age Reference Range(mIU/mL) 0.2-1 Week 5-50 1-2 Weeks 50-500 2-3 Weeks 100-5,000 3-4 Weeks 500-10,000 4-5 Weeks 1,000-50,000 5-6 Weeks 10,000-100,000 6-8 Weeks 15,000-200,000 2-3 Months 10,000-100,000 HEPATITIS B SURFACE [id number] 11:16:00* Test Item Value Reference Range Comments HEPATITIS B SURFACE ANTIBODY (BEAKER) (test eevd=131) < mIU/mL <8.0 HEPATITIS B SURFACE [id number] 11:14:00* Test Item Value Reference Range Comments HEPATITIS B SURFACE ANTIGEN (2) (BEAKER) (test lpfk=7425) Nonreactive Nonreactive HEPATITIS B CORE ANTIBODY, [id number] 11:14:00* Test Item Value Reference Range Comments HEPATITIS B CORE IGM ANTIBODY (BEAKER) (test suir=035) Nonreactive Nonreactive HIV-1 ANTIGEN WITH HIV-1/2 [id number] 11:14:00* Test Item Value Reference Range Comments HIV-1 ANTIGEN WITH HIV 1\T\2 ANTIBODY (2) (BEAKER) (test mtiz=1682) Nonreactive Nonreactive CREATININE, RANDOM [id number] 11:13:00* Test Item Value Reference Range Comments CREATININE URINE (BEAKER) (test lgcw=526) 132.2 mg/dL Reference Range: No NormalsPROTEIN, RANDOM [id number] 11:13:00* Test Item Value Reference Range Comments PROTEIN, URINE (BEAKER) (test vflk=1271) 12 mg/dL 0-14 MICROALBUMIN, RANDOM [id number] 11:13:00* Test Item Value Reference Range Comments MICROALBUMIN URINE (BEAKER) (test ymkk=9273) 2.0 mg/dL Reference Range: No NormalsBASIC METABOLIC [id number] 11:01:00* Test Item Value Reference Range Comments SODIUM (BEAKER) (test bmix=013) 137 meq/L 136-145 POTASSIUM (BEAKER) (test yjxs=760) 4.4 meq/L 3.5-5.1 CHLORIDE (BEAKER) (test kmgk=887) 106 meq/L 98-107 CO2 (BEAKER) (test jfjy=581) 24 meq/L 22-29 BLOOD UREA NITROGEN (BEAKER) (test cald=128) 10 mg/dL 7-21 CREATININE (BEAKER) (test umqx=099) 0.72 mg/dL 0.57-1.25 GLUCOSE RANDOM (BEAKER) (test djse=591) 90 mg/dL 70-105 CALCIUM (BEAKER) (test nqbe=030) 8.7 mg/dL 8.4-10.2 EGFR (BEAKER) (test hdzl=7868) mL/min/1.73 sq m INSUFFICIENT CLINICAL DATA TO CALCULATE ESTIMATED GFR. [id number] 11:00:00* Test Item Value Reference Range Comments PHOSPHORUS (BEAKER) (test aqqe=085) 2.3 mg/dL 2.3-4.7 [id number] 11:00:00* Test Item Value Reference Range Comments MAGNESIUM (BEAKER) (test ttzt=178) 2.3 mg/dL 1.6-2.6 LIPID [id number] 11:00:00* Test Item Value Reference Range Comments TRIGLYCERIDES (BEAKER) (test mlml=835) 91 mg/dL CHOLESTEROL (BEAKER) (test iako=462) 181 mg/dL HDL CHOLESTEROL (BEAKER) (test odmu=483) 63 mg/dL LDL CHOLESTEROL CALCULATED (BEAKER) (test eihy=740) 100 mg/dL Triglyceride Reference Range: Low Risk <150 Borderline 150-199 High Risk 200-499 Very High Risk >=500Cholesterol Reference Range: Low Risk <200 Borderline 200-239 High Risk >240HDL Cholesterol Reference Range: Low Risk >=60 High Risk <40LDL Cholesterol Reference Range: Optimal <100 Near Optimal 100-129 Borderline 130-159 High 160-189 Very High >=190 HEPATIC FUNCTION [id number] 11:00:00* Test Item Value Reference Range Comments TOTAL PROTEIN (BEAKER) (test jdrv=258) 7.4 gm/dL 6.0-8.3 ALBUMIN (BEAKER) (test yqbo=1260) 4.1 g/dL 3.5-5.0 BILIRUBIN TOTAL (BEAKER) (test gnfd=698) 0.5 mg/dL 0.2-1.2 BILIRUBIN DIRECT (BEAKER) (test pusn=369) 0.2 mg/dL 0.1-0.5 ALKALINE PHOSPHATASE (BEAKER) (test nlaf=058) 84 U/L 40-150 AST (SGOT) (BEAKER) (test ocks=813) 19 U/L 5-34 ALT (SGPT) (BEAKER) (test mrxa=801) 21 U/L 6-55 GAMMA GLUTAMYL TRANSFERASE (GGT)2017-06-12 11:00:00* Test Item Value Reference Range Comments GAMMA GLUTAMYL TRANSFERASE (BEAKER) (test mxuv=278) 7 U/L 9-64 LACTATE DEHYDROGENASE (LDH)2017-06-12 11:00:00* Test Item Value Reference Range Comments LACTATE DEHYDROGENASE (BEAKER) (test lije=977) 185 U/L 125-220 URINALYSIS W/ [id number] 10:59:00* Test Item Value Reference Range Comments COLOR (BEAKER) (test cegu=872) Yellow CLARITY (BEAKER) (test qdwn=569) Clear SPECIFIC GRAVITY UA (BEAKER) (test wabz=056) 1.017 1.001-1.035 PH UA (BEAKER) (test sxoj=285) 7.0 5.0-8.0 PROTEIN UA (BEAKER) (test obho=892) 10 mg/dL Negative GLUCOSE UA (BEAKER) (test fqof=778) Negative Negative KETONES UA (BEAKER) (test tozo=159) Negative Negative BILIRUBIN UA (BEAKER) (test emeo=726) Negative Negative BLOOD UA (BEAKER) (test lwym=699) Negative Negative NITRITE UA (BEAKER) (test rxhg=529) Negative Negative LEUKOCYTE ESTERASE UA (BEAKER) (test rbek=292) Negative Negative UROBILINOGEN UA (BEAKER) (test nooh=652) 0.2 mg/dL 0.2-1.0 RBC UA (BEAKER) (test jqbb=406) 1 /HPF WBC UA (BEAKER) (test lblg=365) < /HPF MUCUS (BEAKER) (test xsij=4405) Occasional SQUAMOUS EPITHELIAL (BEAKER) (test mlfv=706) 6 /HPF CASTS (BEAKER) (test cwzz=7111) 2 /LPF SOURCE(BEAKER) (test lhcv=6463) [id number] 10:34:00* Test Item Value Reference Range Comments PROTIME (BEAKER) (test mqlh=330) 13.8 seconds 11.7-14.7 INR (BEAKER) (test fxwh=987) 1.1 <=5.9 PARTIAL THROMBOPLASTIN TIME (BEAKER) (test meay=262) 33.7 seconds 22.5-36.0 RECOMMENDED COUMADIN/WARFARIN INR THERAPY RANGESSTANDARD DOSE: 2.0 - 3.0 Inclu [place]: PROPHYLAXIS for venous thrombosis, systemic embolization; TREATMENT for chrystal ous thrombosis and/or pulmonary embolus.HIGH RISK: Target INR is 2.5-3.5 for pat ients with mechanical heart valves.CBC W/PLT COUNT & AUTO [id number] 10:29:00* Test Item Value Reference Range Comments WHITE BLOOD CELL COUNT (BEAKER) (test jrhj=038) 8.1 K/ L 3.5-10.5 RED BLOOD CELL COUNT (BEAKER) (test lyug=371) 5.33 M/ L 3.93-5.22 HEMOGLOBIN (BEAKER) (test hwoo=929) 13.9 GM/DL 11.2-15.7 HEMATOCRIT (BEAKER) (test wzgr=551) 43.0 % 34.1-44.9 MEAN CORPUSCULAR VOLUME (BEAKER) (test ldsg=529) 80.7 fL 79.4-94.8 MEAN CORPUSCULAR HEMOGLOBIN (BEAKER) (test pnuc=976) 26.1 pg 25.6-32.2 MEAN CORPUSCULAR HEMOGLOBIN CONC (BEAKER) (test xcvx=270) 32.3 GM/DL 32.2-35.5 RED CELL DISTRIBUTION WIDTH (BEAKER) (test ccqz=159) 14.4 % 11.7-14.4 PLATELET COUNT (BEAKER) (test wprs=996) 216 K/CU MM 150-450 MEAN PLATELET VOLUME (BEAKER) (test memk=717) 11.1 fL 9.4-12.3 NUCLEATED RED BLOOD CELLS (BEAKER) (test usgf=533) 0 /100 WBC 0-0 NEUTROPHILS RELATIVE PERCENT (BEAKER) (test nxpx=513) 61 % LYMPHOCYTES RELATIVE PERCENT (BEAKER) (test ufkk=816) 32 % MONOCYTES RELATIVE PERCENT (BEAKER) (test avgt=437) 5 % EOSINOPHILS RELATIVE PERCENT (BEAKER) (test fckx=501) 1 % BASOPHILS RELATIVE PERCENT (BEAKER) (test zhht=194) 1 % NEUTROPHILS ABSOLUTE COUNT (BEAKER) (test vqqg=136) 4.97 K/ L 1.56-6.13 LYMPHOCYTES ABSOLUTE COUNT (BEAKER) (test onps=102) 2.61 K/ L 1.18-3.74 MONOCYTES ABSOLUTE COUNT (BEAKER) (test qxtj=020) 0.39 K/ L 0.24-0.36 EOSINOPHILS ABSOLUTE COUNT (BEAKER) (test ofoy=839) 0.09 K/ L 0.04-0.36 BASOPHILS ABSOLUTE COUNT (BEAKER) (test ojxi=214) 0.04 K/ L 0.01-0.08 IMMATURE GRANULOCYTES-RELATIVE PERCENT (BEAKER) (test tuvj=9313) 0 % 0-1
[2019-08-25 19:56] LABS: CLARITY,URINE SL CLOUDY (CLEAR); COLOR,URINE YELLOW (YELLOW); LEUKOCYTE ESTERASE ,URINE NEGATIVE (NEGATIVE); NITRITE,URINE NEGATIVE (NEGATIVE); URINE UROBILINOGEN 0.2 mg/dL (0.2 - 1)
[2019-08-25 19:57] LABS: BILIRUBIN,URINE NEGATIVE (NEGATIVE); KETONES,URINE NEGATIVE (NEGATIVE); PROTEIN,URINE DIPSTICK NEGATIVE (NEGATIVE)
[2019-08-25 20:18] LABS: BACTERIA,URINE FEW /HPF
[2019-08-25 20:19] LABS: EPITHELIAL CELLS,URINE MODERATE /LPF
--- NOTE | 2019-08-25 21:05 | Diagnostic Imaging Report ---
CT Abdomen and Pelvis without contrast INDICATION: Right flank pain, donated left kidney, ^FLANK PAIN TECHNIQUE: Thin collimation axial images obtained from the diaphragm to the level of the pubic symphysis without nonionic intravenous contrast. Dose reduction techniques used: Automated exposure control, adjustment of the mAs and/or kVp according to patient size, standardized low-dose protocol, and/or iterative reconstruction technique. RADIATION DOSE: Total DLP: 738.1 mGy*cm Estimated effective dose: (DLP x 0.015 x size factor) mSv CTDIvol has been reviewed. It is below the limits set by the Radiation Protocol Committee (RPC). COMPARISON: None. ABDOMEN FINDINGS: Lung Bases: Calcified subcentimeter in the lumen in the right lower lobe. Trace amount of subsegmental atelectasis in the lingula and right middle lobe. There are prominent pericardial fat pads. The heart is normal in size Liver: Normal in attenuation without mass. Gallbladder: Absent. No ductal dilatation. Pancreas: Mild fatty atrophy without mass or ductal dilatation. Spleen: Normal size without mass. Adrenal Glands: No evidence for mass. Kidneys: Right: No renal calculus. No cortical mass or hydronephrosis Left: Absent. No mass in the nephrectomy bed Lymph Nodes: No enlarged abdominal or periaortic lymph nodes. No enlarged mesenteric, pelvic, or inguinal lymph nodes. Aorta: Normal in diameter. PELVIS FINDINGS: Bowel: Stomach: Normal. Small Bowel: Normal in caliber with normal wall thickness. Large Bowel: Moderate burden of formed stool in the right colon. No large bowel dilatation or pericolonic inflammation. Appendix: Normal. Bladder: Under distended but otherwise normal. Ureters: No ureteral dilatation or calculus. The uterus is absent with morphology suggestive of supracervical hysterectomy. There is air within the endocervical canal as well as circumferential mural thickening and lobulated contours of the cervix. A calcification in the expected location of the right Bartholin's gland measures 12 mm. There are several follicles in the left ovary. The right ovary is normal. Peritoneum/retroperitoneum: No free fluid or fluid collection. Bones: Mild degenerative changes of the spine. No focal osseous lesions. Soft tissues: Unremarkable.. IMPRESSION: 1. 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 2. No evidence for bowel obstruction or inflammation. Normal appendix. Moderate burden of formed stool in the right colon. 3. Soft tissue prominence of the cervix should be further evaluated with pelvic exam to exclude a neoplastic process. Calcification in the expected location of the right Bartholin's gland. Signed by: Dr. Alba Mace MD on 08/25/2019 9:01 PM
== END 2019-08-25 23:29 | disposition home or self-care (01) ==
LOC: ER 17:45
DX: K59.00 Constipation, unspecified (principal); R10.9 Unspecified abdominal pain; K21.9 Gastro-esophageal reflux disease without esophagitis
CPT/HCPCS: 74176; 81001; 81025; 99283